=== PATIENT | male | born 1965 | race Caucasian/White ===

== ENCOUNTER 2019-02-10 08:58 | Emergency (ER) | payer BC ==
[2019-02-10 09:11] VITALS: BP 127/85
--- NOTE | 2019-02-10 09:20 | UC ---
General HPI - HPI Summary HPI Summary: SORE THROAT SINCE YESTERDAY AND L EAR PAIN. NOTES HIS VOICE HAS CHANGED. HE IS ABLE TO SWALLOW BUT ADMITS IT FEELS DIFFICULT. - History of Current Complaint Chief Complaint: UCGeneralIllness Stated Complaint: SORE THROAT Time Seen by Provider: 02/10/19 09:12 Hx Obtained From: Patient Onset/Duration: Gradual Onset Timing: Constant Pain Intensity: 7 Associated Signs & Symptoms: Negative: Fever, SOB - Allergy/Home Medications Allergies/Adverse Reactions: Allergies Allergy/AdvReac Type Severity Reaction Status Date / Time No Known Allergies Allergy Verified 02/10/19 09:07 PMH/Surg Hx/FS Hx/Imm Hx Cardiovascular History: Hypertension Psychological History: Depression - Surgical History Surgical History: Yes Surgery Procedure, Year, and Place: Right Foot "new socket ... cartiladge", ~ 2010, - Family History Known Family History: Positive: Cardiac Disease - father, Hypertension - father , Diabetes - mother - Social History Occupation: Employed Full-time Alcohol Use: Occasionally Substance Use Type: None Smoking Status (MU): Never Smoked Tobacco - Immunization History Most Recent Influenza Vaccination: Not the 2015/2016 Season Most Recent Tetanus Shot: Unsure Vaccination Up to Date: Yes Review of Systems All Other Systems Reviewed And Are Negative: Yes ENT: Positive: Sore Throat, Ear Ache Physical Exam Triage Information Reviewed: Yes Appearance: Well-Appearing Vital Signs: Initial Vital Signs Temp 98.6 F 02/10/19 09:08 Pulse 93 02/10/19 09:08 Resp 15 02/10/19 09:08 BP 127/85 02/10/19 09:08 Pulse Ox 98 02/10/19 09:08 Vital Signs Reviewed: Yes Eyes: Positive: Conjunctiva Clear ENT: Positive: Pharyngeal erythema - WITH SWELLING L>R., TMs normal, Tonsillar swelling, Tonsillar exudate - L, Trismus, Muffled voice, Uvula midline - BUT MODERATE SWELLING AND ERYTHEMA., Other - SWALLOWING SALIVA WITH NO DIFFICULTY. Negative: Nasal congestion, Nasal drainage Neck: Positive: Supple, Nontender, Enlarged Nodes @ - PERITONSILAR NODES Respiratory: Positive: Lungs clear, Normal breath sounds, No respiratory distress Cardiovascular: Positive: RRR, No Murmur Abdomen Description: Positive: Nontender Musculoskeletal: Positive: ROM Intact Neurological: Positive: Alert Psychological: Positive: Age Appropriate Behavior Skin Exam: Normal Skin: Negative: Rashes Course/Dx - Course Course Of Treatment: POSSIBLE EARLY L PERITONSILAR ABSCESS. NO TROUBLE WITH BREATHING OR HANDLING SECRETIONS. PT AGREES TO ER TRANSFER BUT WILL DRIVE SELF. [facility] ER CALLED. REPORT GIVEN TO HARVINDER DUNCAN NP. I ADVISED OF ENLARGED UVULA, MUFFLED VOICE, ASYMMETRICAL SWELLING, PAIN IN JAW WITH OPENING AND MUFFLED VOICE THUS R/O PERITONSILAR ABSCESS AND PT DRIVING HIMSELF. - Differential Dx - Multi-Symptom Differential Diagnoses: Other - EXAM CONCERNING FOR A L PERITONSILAR ABSCESS. PT AGREES TO ER TRANSFER. - Diagnoses Provider Diagnosis: Tonsillitis, Uvulitis Discharge - Sign-Out/Discharge Documenting (check all that apply): Patient Departure All imaging exams completed and their final reports reviewed: No Studies - Discharge Plan Condition: Stable Disposition: TRANS HIGHER LVL OF CARE FAC Patient Education Materials: Tonsillitis (ED), Uvulitis (ED) Referrals: Bib Amaya MD [Primary Care Provider] - Additional Instructions: LEAVE HERE AND GO DIRECTLY TO THE [facility] ER DISCUSSED - Billing Disposition and Condition Condition: STABLE Disposition: Trans Higher Lvl of Care Fac
== END 2019-02-10 09:26 | disposition short-term general hospital (02) ==
LOC: UCCORT 08:58
DX: J03.90 Acute tonsillitis, unspecified (principal); K12.2 Cellulitis and abscess of mouth; H92.02 Otalgia, left ear; I10 Essential (primary) hypertension
CPT/HCPCS: 99212; G0463